=== PATIENT | female | born 1965 | race African-American/Black ===

== ENCOUNTER → 2019-02-12 | Outpatient (CLI) | payer OTHER | LOC: M.MRI 07:30 | DX: M47.816 Spondylosis without myelopathy or radiculopathy, lumbar region (principal); M51.26 Other intervertebral disc displacement, lumbar region; M48.062 Spinal stenosis, lumbar region with neurogenic claudication; Z91.040 Latex allergy status ==

== ENCOUNTER → 2020-02-02 | Outpatient (CLI) | payer OTHER | LOC: M.CT 15:00 | PROVIDERS: ATTEND Internal Medicine | DX: R05 Cough (principal); M79.89 Other specified soft tissue disorders ==

== ENCOUNTER 2020-02-19 14:16 | Emergency (ER) | payer OTHER ==
[~2020-02-19] VITALS: Ht 149.9 cm; Wt 73.9 kg
[2020-02-19] MEDS ORDERED: NITRO-BID1 GM RECTAL (15:06)
[2020-02-19] MEDS ORDERED: LIDOCAINE 2%2 %/5 GM TOP (15:06)
[2020-02-19 15:13] VITALS: BP 141/86
== END 2020-02-19 15:14 | disposition home or self-care (01) ==
LOC: M.ERS 14:16
DX: K60.2 Anal fissure, unspecified (principal); K64.4 Residual hemorrhoidal skin tags; Z91.040 Latex allergy status; Z86.2 Personal history of diseases of the blood and blood-forming organs and certain disorders involving the immune mechanism

== ENCOUNTER 2021-05-08 06:07 | Emergency (ER) | payer OTHER ==
[~2021-05-08] VITALS: Ht 149.9 cm; Wt 78.0 kg
[~2021-05-08 06:07] MED LIST: LIDOCAINE 2%2 %/5 GM TOP; NITRO-BID1 GM RECTAL
[2021-05-08] MEDS ORDERED: LYRICA25 MG PO (06:20)
[2021-05-08] MEDS ORDERED: TRAMADOL 50 MG50 MG PO (06:20)
[2021-05-08] MEDS ORDERED: HYDROCODON-ACE1 EAC7 PO (09:31)
[2021-05-08 09:45] VITALS: BP 127/80
== END 2021-05-08 09:46 | disposition home or self-care (01) ==
LOC: M.ERS 06:07
DX: S06.0X0A Concussion without loss of consciousness, initial encounter (principal); M25.552 Pain in left hip; M25.512 Pain in left shoulder; M54.50 Low back pain, unspecified; Z91.09 Other allergy status, other than to drugs and biological substances; Z91.040 Latex allergy status; Z79.891 Long term (current) use of opiate analgesic; Z79.899 Other long term (current) drug therapy; Z88.8 Allergy status to other drugs, medicaments and biological substances; W01.198A Fall on same level from slipping, tripping and stumbling with subsequent striking against other object, initial encounter; Y93.89 Activity, other specified; Y92.89 Other specified places as the place of occurrence of the external cause; Y99.8 Other external cause status